=== PATIENT | male | born 1995 | race Caucasian/White ===

== ENCOUNTER 2023-06-10 14:10 | Emergency (ER) | payer MEDICAID ==
[~2023-06-10] VITALS: Ht 177.8 cm; Wt 86.2 kg
[2023-06-10 14:10] VITALS: BP_SYST 129; PULSE 76; RESP 18; TEMP 98.4; O2SAT 98
[2023-06-10 14:53] LABS: BASOPHILS % (AUTO) 0.6 % (0.0-2.0); EOSINOPHILS # (AUTO) 0.1 K/uL (0.0-0.4); EOSINOPHILS % (AUTO) 2.4 % (0.0-4.0); HEMATOCRIT 43.8 % (36-54); HEMOGLOBIN 15.1 g/dL (14.0-18.0); LYMPHOCYTES # (AUTO) 1.8 K/uL (1.0-5.5); MEAN CORPUSCULAR HEMOGLOBIN 31 pg (27-31); MEAN CORPUSCULAR HGB CONC 35 % (32-36); MEAN CORPUSCULAR VOLUME 89 fL (79.0-98.0); MONOCYTES # (AUTO) 0.4 K/uL (0.0-1.0); MONOCYTES % (AUTO) 7.4 % (1.7-9.3); NEUTROPHILS # (AUTO) 2.9 K/uL (1.8-7.7); NEUTROPHILS % (AUTO) 55.6 % (40.0-70.0); PLATELET COUNT (AUTO) 231 K/uL (130-430); RED BLOOD CELL COUNT(AUTO) 4.92 MIL/uL (4.2-6.2); WHITE BLOOD COUNT (AUTO) 5.2 K/uL (4.8-10.8)
[2023-06-10 15:11] LABS: CREATININE 1.04 mg/dL (0.55-1.30); POTASSIUM 4.2 mmol/L (3.5-5.1)
[2023-06-10 17:35] VITALS: BP_SYST 129; PULSE 76; RESP 18; TEMP 98.4; O2SAT 100
== END 2023-06-10 17:45 | disposition home or self-care (01) ==
LOC: SED 14:10
DX: R10.31 Right lower quadrant pain (principal)
CPT/HCPCS: 36415; 76376; 80048; 85025; 99284